=== PATIENT | female | born 1970 | race Caucasian/White ===

== ENCOUNTER 2016-11-30 06:13 | Day surgery (SDC) | payer MEDICARE, MEDICAID ==
[~2016-11-30] VITALS: Ht 170.2 cm; Wt 87.1 kg
[~2016-11-30 06:13] MED LIST: ABILIFY2 MG PO; ALBUTEROL S2.5 MG/.5 IN; ALBUTEROL0.5 % IN; BENADRYL ALLERG25 M1 PO; BENZONATATE200 MG PO; CIPROFLOXACN500 MG PO; CLEOCIN150 M1 PO; CLEOCIN300 MG PO; CLINDAMYCIN300 M1 PO; DARVOCET N-100100 - OR; DARVOCET-N 100100 MG OR; DEPAKOTE250 MG OR; DEPAKOTE500 MG PO; DIVALPROEX SOD250 MG PO; DIVALPROEX250 MG PO; DIVALPROEX500 MG PO; DOXYCYCL HYC100 MG PO; DULOXETINE HCL60 MG PO; FLEXERIL PO; FLONASE NASAL50 MCG; FLUOXETINE20 MG PO; GABAPENTIN100 MG PO; GABAPENTIN300 M2 PO; HYDROCHLOROTH12.5 MG PO; HYDROXYZ HCL25 MG PO; IMITREX100 MG PO; INVEGA6 MG PO; KEFLEX500 MG PO; LEXAPRO10 MG OR; LEXAPRO20 MG OR; LEXAPRO5 MG OR; LORTAB 10-325 M1 TAB PO; LORTAB 1010 MG PO; LORTAB 5/3255 MG PO; LORTAB 7.5-3251 TAB PO; LYRICA25 MG PO; METRONIDAZOL500 MG PO; MINIPRESS2 M1 PO; MOTRIN IB200 MG OR; MOTRIN400 MG/TAB PO; MOTRIN800 MG PO; MUCINEX600 MG PO; MUPIROCIN2 % EX; NAPROSYN375 MG PO; NAPROSYN500 MG PO; NEXIUM40 M1 PO; NO HOME MEDS; NO MEDS; OMEPRAZOLE20 M2 PO; OMEPRAZOLE20 MG PO; ONDANSETRON HCL4 MG PO; PALIPERIDONE ER6 MG PO; PENICILLN VK500 MG PO; PERCOCET 5/325M1 TAB PO; PREDNISONE10 MG PO; PREVACID30 M1 PO; PREVACID30 M2 PO; PRILOSEC20 MG PO; PROAIR HFA IN; PROMETHAZINE25 M1 RE; PROZAC10 MG PO; PROZAC20 M1 PO; QVAR80 MCG IN; RANITIDINE150 M1 PO; RISPERDAL1 M1 PO; ROBITUSSIN AC10 ML OR; ROBITUSSIN AC10 ML PO; SEROQUEL25 MG OR; SEROQUEL25 MG PO; SEROQUEL50 MG OR; STRATTERA40 MG PO; SULFACET SOD10 % OS; TORADOL OR; TORADOL PO; TRAZODONE50 MG PO; ULTRAM50 M1 PO; ULTRAM50 MG OR; VALPROIC ACD250 M1 PO; VISTARIL 50MG C50 MG PO; VISTARIL25 MG PO; ZOFRAN ODT4 MG OR; ZOFRAN ODT4 MG PO; ZOFRAN ODT8 MG PO; ZOFRAN4 MG/TAB PO; ZPAK PO; [UNRECOGNIZED DRUG - REMARK]; [UNRECOGNIZED DRUG - REMARK]; [UNRECOGNIZED DRUG - REMARK]
[2016-11-30] MEDS ORDERED: PERCOCET 5/325M1 TAB PO (10:38)
[2016-11-30 11:01] VITALS: BP 114/66
[2016-12-01] MEDS ORDERED: PHENERGAN25 MG/TAB PO (22:57)
== END 2016-11-30 11:32 | disposition home or self-care (01) ==
LOC: ORM 06:13
PROVIDERS: ATTEND Surgery
PROC: 0WUF0JZ Supplement Abdominal Wall with Synthetic Substitute, Open Approach (ICD-10-PCS; principal; 2016-11-30)
DX: K43.0 Incisional hernia with obstruction, without gangrene (principal); I10 Essential (primary) hypertension; G40.909 Epilepsy, unspecified, not intractable, without status epilepticus
CPT/HCPCS: J2710

== ENCOUNTER 2016-12-01 22:09 | Emergency (ER) | payer MEDICARE, MEDICAID ==
[~2016-12-01] VITALS: Ht 170.2 cm; Wt 85.6 kg
[2016-12-01] MEDS ORDERED: PHENERGAN25 MG/TAB PO (22:57)
[2016-12-01 23:30] VITALS: BP 118/76
== END 2016-12-01 23:33 | disposition home or self-care (01) ==
LOC: ED 22:09
DX: R11.10 Vomiting, unspecified (principal); T40.2X5A Adverse effect of other opioids, initial encounter; Z98.890 Other specified postprocedural states; R10.9 Unspecified abdominal pain; Y92.009 Unspecified place in unspecified non-institutional (private) residence as the place of occurrence of the external cause

== ENCOUNTER 2016-12-23 15:08 | Emergency (ER) | payer MEDICARE, MEDICAID ==
[~2016-12-23] VITALS: Ht 170.2 cm; Wt 84.2 kg
[~2016-12-23 15:08] MED LIST changes: +PHENERGAN25 MG/TAB PO
[2016-12-23] MEDS ORDERED: NAPROSYN500 MG PO (16:45)
[2016-12-23 16:54] VITALS: BP 121/78
== END 2016-12-23 16:54 | disposition home or self-care (01) ==
LOC: ED 15:08
PROC: 2W3LX1Z Immobilization of Right Lower Extremity using Splint (ICD-10-PCS; principal; 2016-12-23)
DX: S83.91XA Sprain of unspecified site of right knee, initial encounter (principal); X50.0XXA Overexertion from strenuous movement or load, initial encounter; Y93.E9 Activity, other interior property and clothing maintenance; Y92.009 Unspecified place in unspecified non-institutional (private) residence as the place of occurrence of the external cause
CPT/HCPCS: L1830

== ENCOUNTER 2017-01-02 11:49 | Emergency (ER) | payer MEDICARE, OTHER ==
[~2017-01-02] VITALS: Ht 170.2 cm; Wt 86.2 kg
[2017-01-02 11:55] VITALS: BP 133/90
[2017-01-02] MEDS ORDERED: MOTRIN800 MG PO (12:15)
[2017-01-02] MEDS ORDERED: PERCOCET 5/325M1 TAB PO (12:15)
[2017-01-02] MEDS ORDERED: FLEXERIL PO (12:15)
== END 2017-01-02 12:44 | disposition home or self-care (01) ==
LOC: ED 11:49
DX: M43.6 Torticollis (principal); Z86.73 Personal history of transient ischemic attack (TIA), and cerebral infarction without residual deficits; X58.XXXA Exposure to other specified factors, initial encounter; Y92.009 Unspecified place in unspecified non-institutional (private) residence as the place of occurrence of the external cause

== ENCOUNTER 2017-04-29 17:59 | Emergency (ER) | payer MEDICARE, OTHER ==
[~2017-04-29] VITALS: Ht 170.2 cm; Wt 84.0 kg
[2017-04-29] MEDS ORDERED: RISPERDAL0.5 MG PO (20:03)
[2017-04-29] MEDS ORDERED: HYDROCHLOROT25 MG PO (20:04)
[2017-04-29] MEDS ORDERED: NEURONTIN300 MG PO (20:05)
[2017-04-29] MEDS ORDERED: ULTRAM50 M1 PO (21:13)
[2017-04-29 21:20] VITALS: BP 119/74
== END 2017-04-29 21:20 | disposition home or self-care (01) ==
LOC: ED 17:59
DX: G89.29 Other chronic pain (principal); M54.2 Cervicalgia; G40.909 Epilepsy, unspecified, not intractable, without status epilepticus; J45.909 Unspecified asthma, uncomplicated; K21.9 Gastro-esophageal reflux disease without esophagitis; F17.210 Nicotine dependence, cigarettes, uncomplicated

== ENCOUNTER 2017-10-18 10:33 | Emergency (ER) | payer MEDICARE, OTHER ==
[~2017-10-18] VITALS: Ht 170.2 cm; Wt 100.0 kg
[~2017-10-18 10:33] MED LIST changes: +HYDROCHLOROT25 MG PO; +NEURONTIN300 MG PO; +RISPERDAL0.5 MG PO
[2017-10-18] MEDS ORDERED: VALIUM5 MG PO (11:13)
[2017-10-18 11:18] LABS: IMMATURE GRANULOCYTES 0.3 % (0.0-1.0); MEAN CELL VOLUME 82.1 fL CALC (80.0-100.0); MEAN CORPUSCULAR HGB 28.4 pG CALC (26.0-32.0); MEAN CORPUSCULAR HGB CONC 34.6 g/L CALC (32.0-36.0); NEUT# 4.81 thou/uL (2.00-7.15); RED BLOOD COUNT 5.63 mill/uL (4.20-5.60); RED CELL DISTRI WIDTH 16.6 % (11.5-15.5)
[2017-10-18 11:19] LABS: HEMATOCRIT 46.2 % (37.0-47.0); URINE BILIRUBIN - DIPSTICK NEGATIVE (NEGATIVE); URINE BLOOD DIPSTICK NEGATIVE (NEGATIVE); URINE COLOR YELLOW; URINE GLUCOSE - DIPSTICK NEGATIVE (NEGATIVE); URINE KETONE NEGATIVE (NEGATIVE); URINE LEUK ESTERASE NEGATIVE (NEGATIVE); URINE NITRITE - DIPSTICK NEGATIVE (Negative); URINE PROTEIN - DIPSTICK NEGATIVE (NEG-TRACE); URINE UROBILINOGEN - DIPSTICK 0.2 E.U./dL (0.2)
[2017-10-18 11:20] LABS: URINE CLARITY SL CLOUDY
[2017-10-18 11:34] LABS: ALBUMIN 4.7 g/dL (3.2-5.0); ALKALINE PHOSPHATASE 102 u/l (38-126); ANION GAP 20 (6-22 (CALC)); BILIRUBIN, TOTAL 0.7 mg/dL (0.0-1.4); BUN 17 mg/dL (7-17); BUN/CREATININE RATIO 17 (12-20 (CALC)); CARBON DIOXIDE 29 mmol/l (22-30); CHLORIDE 94 mmol/l (95-108); GFR 60 ML/MIN (>=60 (CALC)); GFR FOR AFR.AMER. > 60 ML/MIN (>=60 (CALC)); POTASSIUM 2.8 mmol/l (3.5-5.1); SGPT/ALT 33 u/l (9-52); SODIUM 140 mmol/l (137-146); TOTAL PROTEIN 8.9 g/dL (6.3-8.2)
[2017-10-18 11:35] LABS: SGOT/AST 33 u/l (14-36)
[2017-10-18] MEDS ORDERED: K-DUR/KLOR-CON20 MEQ PO (11:42)
[2017-10-18 12:15] VITALS: BP 131/87
== END 2017-10-18 12:15 | disposition home or self-care (01) ==
LOC: ED 10:33
PROVIDERS: Emergency Medicine
DX: R10.33 Periumbilical pain (principal); E87.6 Hypokalemia; I10 Essential (primary) hypertension; R01.1 Cardiac murmur, unspecified

== ENCOUNTER 2019-02-10 22:26 | Emergency (ER) | payer MEDICARE, OTHER ==
[~2019-02-10] VITALS: Ht 170.2 cm; Wt 83.6 kg
[~2019-02-10 22:26] MED LIST changes: +K-DUR/KLOR-CON20 MEQ PO; +VALIUM5 MG PO
[2019-02-10] MEDS ORDERED: LYRICA50 MG PO (22:57)
[2019-02-10] MEDS ORDERED: MUSCLE SPASM MED PO (22:58)
[2019-02-10 23:01] VITALS: BP 119/90
== END 2019-02-10 23:30 | disposition home or self-care (01) ==
LOC: ED 22:26
DX: S51.812A Laceration without foreign body of left forearm, initial encounter (principal); I10 Essential (primary) hypertension; X58.XXXA Exposure to other specified factors, initial encounter

== ENCOUNTER 2019-02-14 07:29 | Emergency (ER) | payer MEDICARE, OTHER ==
[~2019-02-14] VITALS: Ht 170.2 cm; Wt 80.0 kg
[~2019-02-14 07:29] MED LIST changes: +LYRICA50 MG PO; +MUSCLE SPASM MED PO
[2019-02-14 08:33] LABS: GFR > 60 ML/MIN (>=60 (CALC)); GFR FOR AFR.AMER. > 60 ML/MIN (>=60 (CALC))
[2019-02-14 08:38] LABS: IMMATURE GRANULOCYTES 0.4 % (0.0-5.0); MEAN CELL VOLUME 85.4 fL CALC (80.0-100.0); MEAN CORPUSCULAR HGB 29.2 pG CALC (26.0-32.0); MEAN CORPUSCULAR HGB CONC 34.2 g/L CALC (32.0-36.0); NEUT# 6.72 thou/uL (2.00-7.15); RED BLOOD COUNT 4.45 mill/uL (4.20-5.60); RED CELL DISTRI WIDTH 13.5 % (11.5-15.5)
[2019-02-14 08:48] LABS: ALBUMIN 4.9 g/dL (3.2-5.0); ALKALINE PHOSPHATASE 110 u/l (38-126); ANION GAP 15 (6-22 (CALC)); BILIRUBIN, TOTAL 0.8 mg/dL (0.0-1.4); BUN 17 mg/dL (7-17); BUN/CREATININE RATIO 22 (12-20 (CALC)); CARBON DIOXIDE 27 mmol/l (22-30); CHLORIDE 105 mmol/l (95-108); CREATININE 0.8 mg/dL (0.5-1.0); ETHYL ALCOHOL 0 mg/dl (0-30); GFR > 60 ML/MIN (>=60 (CALC)); GFR FOR AFR.AMER. > 60 ML/MIN (>=60 (CALC)); POTASSIUM 3.1 mmol/l (3.5-5.1); SGOT/AST 24 u/l (14-36); SODIUM 144 mmol/l (137-146); TOTAL PROTEIN 8.6 g/dL (6.3-8.2)
[2019-02-14] MEDS ORDERED: JANTOVEN2.5 MG PO (11:38)
[2019-02-14] MEDS ORDERED: ATENOLOL25 MG PO (11:38)
[2019-02-14] MEDS ORDERED: LYRICA100 MG PO (11:38)
[2019-02-14 11:39] LABS: URINE BILIRUBIN - DIPSTICK NEGATIVE (NEGATIVE); URINE BLOOD DIPSTICK NEGATIVE (NEGATIVE); URINE COLOR YELLOW; URINE GLUCOSE - DIPSTICK NEGATIVE (NEGATIVE); URINE KETONE >=80 mg/dL (NEGATIVE); URINE LEUK ESTERASE NEGATIVE (NEGATIVE); URINE NITRITE - DIPSTICK NEGATIVE (Negative); URINE PROTEIN - DIPSTICK NEGATIVE (NEG-TRACE)
[2019-02-14] MEDS ORDERED: MOTRIN800 MG PO (11:39)
[2019-02-14] MEDS ORDERED: PAROXETINE HCL10 MG PO (11:39)
[2019-02-14] MEDS ORDERED: CYCLOBENZAPR10 MG PO (11:39)
[2019-02-14 11:48] LABS: BARBITURATES NEGATIVE (NEGATIVE); COCAINE NEGATIVE (NEGATIVE); METHADONE NEGATIVE (NEGATIVE); OXCYCODONE NEGATIVE (NEGATIVE); TETRAHYDROCANNABIONOL NEGATIVE (NEGATIVE); TRICYLIC ANTIDEPRESSANTS POSITIVE (NEGATIVE)
[2019-02-14 12:45] VITALS: BP 125/83
== END 2019-02-14 13:43 | disposition short-term general hospital (02) ==
LOC: ED 07:29
PROVIDERS: Family Medicine
DX: F29 Unspecified psychosis not due to a substance or known physiological condition (principal); F22 Delusional disorders; I10 Essential (primary) hypertension; F31.9 Bipolar disorder, unspecified; Z98.2 Presence of cerebrospinal fluid drainage device; R41.82 Altered mental status, unspecified; R47.1 Dysarthria and anarthria; R13.10 Dysphagia, unspecified
CPT/HCPCS: J2060; Q9967

== ENCOUNTER 2019-07-18 | Emergency (ER) | payer MEDICARE, MEDICAID ==
[~2019-07-18] MED LIST changes: +ATENOLOL25 MG PO; +CYCLOBENZAPR10 MG PO; +JANTOVEN2.5 MG PO; +LYRICA100 MG PO; +PAROXETINE HCL10 MG PO
== END 2019-07-18 19:45 | disposition home or self-care (01) ==
DX: S90.32XA Contusion of left foot, initial encounter (principal); I10 Essential (primary) hypertension; W17.2XXA Fall into hole, initial encounter; Y92.410 Unspecified street and highway as the place of occurrence of the external cause

== ENCOUNTER 2020-02-29 10:33 | Emergency (ER) | payer MEDICARE, OTHER ==
[~2020-02-29] VITALS: Ht 170.2 cm; Wt 92.7 kg
[2020-02-29] MEDS ORDERED: IBUPROFEN600 MG PO (12:17)
[2020-02-29 12:25] VITALS: BP 140/74
== END 2020-02-29 12:30 | disposition home or self-care (01) ==
LOC: ED 10:33
PROC: 2W3DX1Z Immobilization of Left Lower Arm using Splint (ICD-10-PCS; principal; 2020-02-29)
DX: M25.532 Pain in left wrist (principal); M25.522 Pain in left elbow; M25.512 Pain in left shoulder; I10 Essential (primary) hypertension; W01.0XXA Fall on same level from slipping, tripping and stumbling without subsequent striking against object, initial encounter; Y92.009 Unspecified place in unspecified non-institutional (private) residence as the place of occurrence of the external cause

== ENCOUNTER 2020-04-17 12:51 | Emergency (ER) | payer MEDICARE, MEDICAID, OTHER ==
[~2020-04-17] VITALS: Ht 170.2 cm; Wt 90.0 kg
[~2020-04-17 12:51] MED LIST changes: +IBUPROFEN600 MG PO
[2020-04-17] MEDS ORDERED: TRAMADOL HCL50 MG PO (13:51)
[2020-04-17] MEDS ORDERED: TRILEPTAL300 MG PO (13:52)
[2020-04-17] MEDS ORDERED: FLUOXETINE HCL20 MG PO (13:55)
[2020-04-17] MEDS ORDERED: PROZAC10 MG PO (13:57)
[2020-04-17] MEDS ORDERED: NAPROXEN500 MG PO (14:14)
[2020-04-17 14:29] VITALS: BP 128/78
== END 2020-04-17 14:29 | disposition home or self-care (01) ==
LOC: ED 12:51
DX: S93.602A Unspecified sprain of left foot, initial encounter (principal); I10 Essential (primary) hypertension; X58.XXXA Exposure to other specified factors, initial encounter

== ENCOUNTER 2020-09-27 | Emergency (ER) | payer MEDICARE, MEDICAID ==
[~2020-09-27] MED LIST changes: +FLUOXETINE HCL20 MG PO; +NAPROXEN500 MG PO; +TRAMADOL HCL50 MG PO; +TRILEPTAL300 MG PO
[2020-09-27] MEDS ORDERED: TRAZODONE50 MG PO (21:05)
[2020-09-27] MEDS ORDERED: BUSPIRONE5 MG PO (21:05)
[2020-09-27] MEDS ORDERED: TORADOL PO (21:21)
[2021-05-21] MEDS ORDERED: ZPAK PO (16:57)
[2021-05-21] MEDS ORDERED: ROBITUSSIN AC10 ML PO (16:57)
== END 2020-09-27 21:50 | disposition home or self-care (01) ==
DX: S80.02XA Contusion of left knee, initial encounter (principal); I10 Essential (primary) hypertension; W01.0XXA Fall on same level from slipping, tripping and stumbling without subsequent striking against object, initial encounter; Y92.009 Unspecified place in unspecified non-institutional (private) residence as the place of occurrence of the external cause; Z98.2 Presence of cerebrospinal fluid drainage device

== ENCOUNTER 2021-01-03 13:33 | Emergency (ER) | payer MEDICARE, MEDICAID ==
[~2021-01-03] VITALS: Ht 170.2 cm; Wt 77.0 kg
[~2021-01-03 13:33] MED LIST changes: +BUSPIRONE5 MG PO
[2021-01-03 14:00] VITALS: BP 98/63
== END 2021-01-03 15:12 | disposition home or self-care (01) ==
LOC: ED 13:33
PROC: 2W3CX1Z Immobilization of Right Lower Arm using Splint (ICD-10-PCS; principal; 2021-01-03)
DX: S60.221A Contusion of right hand, initial encounter (principal); I10 Essential (primary) hypertension; M79.7 Fibromyalgia; W01.0XXA Fall on same level from slipping, tripping and stumbling without subsequent striking against object, initial encounter; Z98.2 Presence of cerebrospinal fluid drainage device

== ENCOUNTER 2021-03-31 15:27 | Emergency (ER) | payer MEDICARE, MEDICAID ==
[~2021-03-31] VITALS: Ht 170.2 cm; Wt 83.6 kg
[2021-03-31] MEDS ORDERED: IMITREX25 MG PO (17:52)
[2021-03-31 19:41] VITALS: BP 130/83
== END 2021-03-31 19:46 | disposition home or self-care (01) ==
LOC: ED 15:27
DX: S93.601A Unspecified sprain of right foot, initial encounter (principal); I10 Essential (primary) hypertension; W19.XXXA Unspecified fall, initial encounter; Y92.009 Unspecified place in unspecified non-institutional (private) residence as the place of occurrence of the external cause; Z98.2 Presence of cerebrospinal fluid drainage device

== ENCOUNTER 2021-09-09 18:23 | Emergency (ER) | payer MEDICARE, MEDICAID ==
[~2021-09-09] VITALS: Ht 170.2 cm; Wt 81.0 kg
[~2021-09-09 18:23] MED LIST changes: +IMITREX25 MG PO
[2021-09-09 19:57] VITALS: BP 115/78
[2021-09-09] MEDS ORDERED: NAPROXEN500 MG PO (20:36)
== END 2021-09-09 20:45 | disposition home or self-care (01) ==
LOC: ED 18:23
PROC: 2W3DX1Z Immobilization of Left Lower Arm using Splint (ICD-10-PCS; principal; 2021-09-09)
DX: S60.222A Contusion of left hand, initial encounter (principal); I10 Essential (primary) hypertension; M79.7 Fibromyalgia; X58.XXXA Exposure to other specified factors, initial encounter; Z98.2 Presence of cerebrospinal fluid drainage device

== ENCOUNTER 2022-03-28 16:57 | Emergency (ER) | payer MEDICARE, MEDICAID ==
[~2022-03-28] VITALS: Ht 170.2 cm; Wt 81.8 kg
[2022-03-28 17:42] VITALS: BP 124/84
[2022-03-28 18:31] VITALS: BP 118/81
[2022-03-28 19:01] VITALS: BP 124/75
[2022-03-28] MEDS ORDERED: NAPROXEN500 MG PO (19:12)
[2022-03-28 19:20] VITALS: BP 124/75
== END 2022-03-28 19:33 | disposition home or self-care (01) ==
LOC: ED 16:57
DX: S93.601A Unspecified sprain of right foot, initial encounter (principal); S90.31XA Contusion of right foot, initial encounter; I10 Essential (primary) hypertension; X50.0XXA Overexertion from strenuous movement or load, initial encounter; Y93.89 Activity, other specified; Y92.009 Unspecified place in unspecified non-institutional (private) residence as the place of occurrence of the external cause; Z98.2 Presence of cerebrospinal fluid drainage device

== ENCOUNTER 2022-05-24 20:22 | Emergency (ER) | payer MEDICARE, MEDICAID ==
[~2022-05-24] VITALS: Ht 170.2 cm; Wt 90.0 kg
[2022-05-24] MEDS ORDERED: SILVADENE1 % EX (21:14)
[2022-05-24 21:22] VITALS: BP 126/88
== END 2022-05-24 21:35 | disposition home or self-care (01) ==
LOC: ED 20:22
PROC: 2W29X4Z Dressing of Left Upper Extremity using Bandage (ICD-10-PCS; principal; 2022-05-24)
DX: T22.20XA Burn of second degree of shoulder and upper limb, except wrist and hand, unspecified site, initial encounter (principal); I10 Essential (primary) hypertension; M79.7 Fibromyalgia; X12.XXXA Contact with other hot fluids, initial encounter; Y92.009 Unspecified place in unspecified non-institutional (private) residence as the place of occurrence of the external cause; Z98.2 Presence of cerebrospinal fluid drainage device

== ENCOUNTER 2022-07-31 13:13 | Emergency (ER) | payer MEDICARE, MEDICAID ==
[~2022-07-31] VITALS: Ht 170.2 cm; Wt 82.0 kg
[2022-07-31] VITALS (10 sets, daily range): BP systolic 106–123; BP diastolic 74–82
[~2022-07-31 13:13] MED LIST changes: +SILVADENE1 % EX
[2022-07-31] MEDS ORDERED: MOTRIN400 MG/TAB PO (15:29)
== END 2022-07-31 16:25 | disposition home or self-care (01) ==
LOC: ED 13:13
DX: M25.531 Pain in right wrist (principal); M25.521 Pain in right elbow; I10 Essential (primary) hypertension; Z98.2 Presence of cerebrospinal fluid drainage device

== ENCOUNTER 2022-10-10 12:46 | Emergency (ER) | payer MEDICARE, MEDICAID ==
[~2022-10-10] VITALS: Ht 170.2 cm; Wt 83.5 kg
[2022-10-10 12:54] VITALS: BP 118/76
[2022-10-10 13:00] VITALS: BP 121/90
[2022-10-10 13:31] VITALS: BP 111/84
[2022-10-10 14:00] VITALS: BP 117/87
[2022-10-10 14:30] VITALS: BP 124/80
[2022-10-10 15:00] VITALS: BP 110/78
[2022-10-10] MEDS ORDERED: NAPROXEN500 MG PO (15:02)
== END 2022-10-10 15:13 | disposition home or self-care (01) ==
LOC: ED 12:46
DX: S60.222A Contusion of left hand, initial encounter (principal); I10 Essential (primary) hypertension; M79.7 Fibromyalgia; W10.9XXA Fall (on) (from) unspecified stairs and steps, initial encounter; Y92.009 Unspecified place in unspecified non-institutional (private) residence as the place of occurrence of the external cause; Z98.2 Presence of cerebrospinal fluid drainage device

== ENCOUNTER 2022-10-29 15:39 | Emergency (ER) | payer MEDICARE, MEDICAID ==
[~2022-10-29] VITALS: Ht 170.2 cm; Wt 65.0 kg
[2022-10-29 15:50] VITALS: BP 115/69
[2022-10-29 16:00] VITALS: BP 121/82
[2022-10-29 16:04] LABS: BASO% 0.5 % (0-3); EOS% 0.5 % (0-8); HEMATOCRIT 35.2 % (37.0-47.0); HEMOGLOBIN 11.6 g/dl (12.0-16.0); IMMATURE GRANULOCYTES 0.3 % (0.0-5.0); LYMPH% 22.9 % (15-41); MEAN CELL VOLUME 89.6 fL CALC (80.0-100.0); MEAN CORPUSCULAR HGB 29.5 pG CALC (26.0-32.0); MONO% 4.9 % (2-13); NEUT# 4.3 thou/uL (2.00-7.15); NEUT% 70.9 % (42-76); RED BLOOD COUNT 3.93 mill/uL (4.20-5.60); RED CELL DISTRI WIDTH 16.1 % (11.5-15.5)
[2022-10-29 16:21] LABS: ALBUMIN 4.1 g/dL (3.2-5.0); ALKALINE PHOSPHATASE 76 u/l (38-126); ANION GAP 11 (6-22 (CALC)); BILIRUBIN, TOTAL 0.4 mg/dL (0.02-1.3); BUN 12 mg/dL (7-17); BUN/CREATININE RATIO 14 (12-20 (CALC)); CARBON DIOXIDE 30 mmol/l (22-30); CHLORIDE 102 mmol/l (95-108); CREATININE 0.8 mg/dL (0.5-1.0); GFR FOR AFR.AMER. > 60 ML/MIN (>=60 (CALC)); GFR OTHER RACES > 60 ML/MIN (>=60 (CALC)); POTASSIUM 3.3 mmol/l (3.5-5.1); SGOT/AST 22 u/l (14-36); SODIUM 140 mmol/l (137-146); TOTAL PROTEIN 6.9 g/dL (6.3-8.2)
[2022-10-29 16:30] VITALS: BP 110/80
[2022-10-29 17:00] VITALS: BP 110/75
[2022-10-29] MEDS ORDERED: TRAMADOL HYDROC50 M1 PO ×2 (18:29→19:00)
[2022-10-29] MEDS ORDERED: K-TAB20 MEQ PO ×2 (18:29→19:00)
[2022-10-29 18:47] VITALS: BP 110/75
== END 2022-10-29 18:55 | disposition home or self-care (01) ==
LOC: ED 15:39
PROVIDERS: Family Medicine
DX: S70.312D Abrasion, left thigh, subsequent encounter (principal); S70.12XD Contusion of left thigh, subsequent encounter; S70.11XD Contusion of right thigh, subsequent encounter; M25.562 Pain in left knee; M25.511 Pain in right shoulder; M54.9 Dorsalgia, unspecified; I10 Essential (primary) hypertension; M79.7 Fibromyalgia; W10.9XXD Fall (on) (from) unspecified stairs and steps, subsequent encounter; Z98.2 Presence of cerebrospinal fluid drainage device

== ENCOUNTER 2023-03-01 12:01 | Emergency (ER) | payer MEDICARE, MEDICAID ==
[~2023-03-01] VITALS: Ht 170.2 cm; Wt 61.4 kg
[~2023-03-01 12:01] MED LIST changes: +K-TAB20 MEQ PO; +TRAMADOL HYDROC50 M1 PO
[2023-03-01 12:07] VITALS: BP 140/100
[2023-03-01 12:15] VITALS: BP 136/90
[2023-03-01 12:31] VITALS: BP 135/89
[2023-03-01 12:46] VITALS: BP 137/88
[2023-03-01 14:42] VITALS: BP 137/88
== END 2023-03-01 14:44 | disposition home or self-care (01) ==
LOC: ED 12:01
DX: S60.222A Contusion of left hand, initial encounter (principal); I10 Essential (primary) hypertension; I51.89 Other ill-defined heart diseases; W19.XXXA Unspecified fall, initial encounter; T50.906A Underdosing of unspecified drugs, medicaments and biological substances, initial encounter; Z91.128 Patient's intentional underdosing of medication regimen for other reason; Z91.81 History of falling; Z98.2 Presence of cerebrospinal fluid drainage device

== ENCOUNTER 2023-11-27 19:00 | Emergency (ER) | payer MEDICARE, MEDICAID ==
[~2023-11-27] VITALS: Ht 170.2 cm; Wt 58.0 kg
[~2023-11-27 19:00] MED LIST changes: +TYLENOL # 31 TA1 PO; +VOLTAREN - GENE75 MG PO
[2023-11-27 19:09] VITALS: BP 137/93
[2023-11-27 19:30] VITALS: BP 123/81
[2023-11-27] MEDS ORDERED: KETOROLAC TROMETHAMINE 30 MG/ML SDV IM ONE (19:50)
[2023-11-27 20:01] VITALS: BP 107/69
[2023-11-27] MEDS ORDERED: DICLOFENAC SODIUM2 % TD (20:16)
[2023-11-27] MEDS ORDERED: NAPROXEN 250 MG/TAB PO ONE (20:20)
[2023-11-27 20:21] VITALS: BP 107/69
== END 2023-11-27 20:21 | disposition home or self-care (01) ==
LOC: ED 19:00
DX: S60.221A Contusion of right hand, initial encounter (principal); I10 Essential (primary) hypertension; M79.7 Fibromyalgia; W19.XXXA Unspecified fall, initial encounter; Z98.2 Presence of cerebrospinal fluid drainage device

== ENCOUNTER 2024-07-22 22:37 | Emergency (ER) | payer MEDICARE, MEDICAID ==
[~2024-07-22] VITALS: Ht 170.2 cm; Wt 81.0 kg
[~2024-07-22 22:37] MED LIST changes: +DICLOFENAC SODIUM2 % TD
[2024-07-22 22:40] VITALS: BP 122/83
[2024-07-22] MEDS ORDERED: oxyCODONE 5MG/ ACETAMINOPHEN 325MG TAB PO ONE (22:45)
[2024-07-22 22:46] VITALS: BP 123/79
[2024-07-22 23:00] VITALS: BP 114/68
[2024-07-22 23:15] VITALS: BP 114/71
[2024-07-22 23:30] VITALS: BP 102/66
[2024-07-22 23:45] VITALS: BP 106/70
[2024-07-23 00:01] VITALS: BP 118/92
[2024-07-23 00:15] VITALS: BP 109/74
== END 2024-07-22 23:59 | disposition home or self-care (01) ==
LOC: ED 22:37
DX: S93.401A Sprain of unspecified ligament of right ankle, initial encounter (principal); I10 Essential (primary) hypertension; W01.0XXA Fall on same level from slipping, tripping and stumbling without subsequent striking against object, initial encounter; Z98.2 Presence of cerebrospinal fluid drainage device

== ENCOUNTER 2024-09-06 20:48 | Emergency (ER) | payer MEDICARE, MEDICAID ==
[~2024-09-06] VITALS: Ht 170.2 cm; Wt 74.8 kg
[2024-09-06] MEDS ORDERED: ACETAMINOPHEN 500 MG TAB PO ONE (20:50)
[2024-09-06] MEDS ORDERED: IBUPROFEN 600 MG/TAB PO ONE (20:55)
[2024-09-06 21:24] VITALS: BP 124/89
== END 2024-09-06 21:34 | disposition home or self-care (01) ==
LOC: ED 20:48
DX: S63.91XA Sprain of unspecified part of right wrist and hand, initial encounter (principal); I10 Essential (primary) hypertension; W01.0XXA Fall on same level from slipping, tripping and stumbling without subsequent striking against object, initial encounter; Y92.009 Unspecified place in unspecified non-institutional (private) residence as the place of occurrence of the external cause; Z98.2 Presence of cerebrospinal fluid drainage device